=== PATIENT | male | born 1990 | race Two or more races ===

== ENCOUNTER → 2024-12-12 09:32 | Outpatient (REF) | payer OTHER, SELFPAY ==
--- NOTE | 2024-12-12 09:46 | CA_ITS ---
Transthoracic Echocardiogram Patient (Last, First, Middle): Pete Allison, Gender: Male Date of : 1990 Age: 34 Procedure Date: 12/12/2024 Procedure Type: Transthoracic Echocardiogram Location: OP Height: 175.26 cm Weight: 72.58 kg BSA: 1.88 m2 Heart Rate: bpm BP: 140 / 92 mmHg Singe Winder: VICKY Referring MD: Anne Wyatt MD Printing Supervisor: Michael Wagoner MD Symptoms: R55 SYNCOPE Study Quality: Adequate ECG Rhythm: Sinus Conclusions: - Overall normal study, however PFO suspected consider bubble contrast study if indicated Findings Left Ventricle Normal left ventricular size, thickness, and systolic function. The visually estimated ejection fraction is between 55-60%. Spectral Doppler is indicative of a normal filling pattern. Right Ventricle Normal right ventricular cavity size and systolic function. Atria Both atria are normal in size. small PFO suspected. Consider bubble contrast study if clinically indicated. Aortic Valve Normal aortic valve structure and function. There is no aortic valve stenosis. There is no aortic valve regurgitation. Mitral Valve Normal mitral valve structure and function. There is trace mitral valve regurgitation. There is no mitral valve stenosis. Pulmonic Valve The pulmonic valve is likely normal. Tricuspid Valve Normal tricuspid valve structure. There is trace tricuspid valve regurgitation. The right ventricular systolic pressure is normal. The right ventricular systolic pressure is 19 mmHg. Normal right atrial pressure. There is no evidence of pulmonary hypertension. Great Vessels All visible segments of the aorta are normal in size. The visualized portions of the pulmonary artery and branches are normal. Venous The inferior vena cava is normal in size and collapses greater than 50% with inspiration. Pericardium/Pleural There is no evidence of pericardial effusion. Prior Study Comparison No prior study available for comparison. Recommendations, Care & Conclusions Recommend contrast study to evaluate intracardiac shunting. Measurements 2D Linear Measurements IVSd: 0.89 0.6-0.9/0.6-1.0 cm LVIDd: 4.76 3.9-5.3/4.2-5.9 cm LVIDd Index: 2.53 2.4-3.2/2.2-3.1 cm/m2 LVIDs: 3.15 2.0-3.6 cm LVPWd: 0.72 0.7-1.1 cm LA Diam: 2.60 2.7-3.8/3.0-4.0 cm LAIDs Index: 1.38 1.5-2.3 cm/m2 LV Mass: 155.89 67-162/88-224 g LV Mass Index: 82.92 43-95/49-115 g/m2 LVOT Diam: 2.40 3.0+(-)1.3 cm 2D Systolic Function EF 4C: 57.10 >55% EF 2C: 55.00 >55% EF BiP: 55.50 >55% Mitral Valve MV Pk E: 0.56 MV PK A: 0.44 MV Decel Time: 264.00 E/A: 1.30 E'Lateral: 10.20 E'Medial: 9.03 E/E' Med: 6.20 E/E' Lat: 5.50 PHT: 77.00 MVA PHT: 2.86 Decel Bureau: 2.13 Aortic Valve AoV Pk Gatito: 1.01 AoV Mn Gatito: 0.69 AoV VTI: 0.23 AoV Pk Grad: 4.00 Aov Mn Grad: 2.00 JENNIFER Cont.VTI: 3.19 LVOT LVOT Pk Gatito: 0.84 LVOT Mn Gatito: 0.52 LVOT VTI: 0.17 LVOT Pk Grad: 3.00 LVOT Mn Grad: 1.00 LVOT Diam: 2.40 LVOT Area: 4.52 Diastolic Function MV Pk E: 0.56 MV Pk A: 0.44 E/A: 1.30 E'Medial: 9.03 E/E' Med: 6.20 E' Laterial: 10.20 E/E' Lat: 5.50 Right Ventricle TAPSE (mm): 20.30 TVS' Gatito: 10.10 Tricuspid Valve TR Pk Gatito: 2.02 TR Pk Grad: 16.00 RA Press: 3.00 RVSP: 19.00 Great Vessels Aorta Sinus of Valsalva: 3.26 2.0-3.5 cm Ao Asc: 3.20 2.1-3.4 cm Updated in Other Vendor System with Status of Final Michael Wagoner MD electronically signed on 12/13/2024 11:38:34 AM with status of Final
--- OUTSIDE RECORDS SUMMARY | 2024-12-12 09:53 | XMS_ITS | Clinical Summary ---
Author Organization [facility] Address [address] [place] [address] Care Team Providers Care Field Service Representative Name Role Phone Benjamin Montelongo MD Primary Care Pr ovider Allergies No known active allergies Medications SUMAtriptan (IMITREX) 25 mg tablet May repeat dose once after 2 hours, if needed. 4 Active topiramate (TOPAMAX) 25 mg tablet Take 1 Tablet by mouth at bedtime. 3 Active hydrOXYzine HCL (ATARAX) 25 mg tablet Take 1 Tablet by mouth at bedtime as needed for Anxiety. 3 Active meclizine (ANTIVERT) 25 mg tablet Take 1 Tablet by mouth every 8 hours as needed (dizziness/vert igo). Medication may cause drowsiness, do not drive/operate machinery while taking 3 Active Active Problems Problem Noted Date Diagnosed Date Enlarged tonsils 06/19/2023 Migraine with aura and witho ut status migrainosus, not intractable 06/19/2023 Syncopal episodes 06/19/2023 Hyperlipidemia 06/07/2023 Arachnoid cyst of posterior cranial fossa 2022 Overview (07/22/2024): Last Assessment & Plan: Mr. Allison describes some dizziness that is followed by a headache or migraine. This has been going on for many years but the worst episode happened about a month ago and resulted in a syncopal event where he fell and hit his head. He went to the emergency department and an MRI revealed a posterior fossa arachnoid cyst. I reviewed the films with Dr. Ta. I told the patient that this was an incidental finding and not related to the symptoms that he was describing. This could be vertigo and he may benefit from a referral to neurology. I will place the referral. Vertigo 04/14/2023 Anxiety 05/03/2018 Immunizations Name Administration Dates Next Due Influenza Quadravalent, MDCK , 0.5ml, preservative free (Flucelvax) 6mo and older 06/19/2023 Influenza Quadravalent, MDCK , 0.5ml, with preservative (Flucelvax) 6mo and older 05/03/2018 Tdap Tetanus diptheria acell ular pertussis (Boostrix; Adacel) 7yo and older 06/19/2023 Surgical History Surgery Date Site/Laterality Comments OTHER SURGICAL HISTORY PROCEDURE: DENIES PREVIOUS SURGERY Family History Medical History Relation Name Comments Depression Father No Known Problems Maternal Grandfather No Known Problems Maternal Grandmother No Known Problems Mother No Known Problems Paternal Grandfather No Known Problems Paternal Grandmother ADD / ADHD Sister 1 No Known Problems Sister 2 Breast cancer Neg Hx Colon cancer Neg Hx Prostate cancer Neg Hx Relation Name Status Comments Father Alive Maternal Grandfather Maternal Grandmother Mother Alive Paternal Grandfather Paternal Grandmother Alive Sister 1 Alive Sister 2 Alive Social History Tobacco Use Types Packs/Day Years Used Date Smoking Tobacco: Never Smokeless Tobacco: Never Alcohol Use Standard Drinks/Week Comments No 0 (1 standard drink = 0.6 oz pur e alcohol) Sex and Gender Information Value Date Recorded Sex Assigned at Male 05/29/2024 1:26 PM EST Legal Sex Male 8:28 AM EST Gender Identity Male 05/29/2024 1:26 PM EST Sexual Orientation Straight 05/29/2024 1: 26 PM EST Obstetrics History Last Filed Vital Signs Vital Sign Reading Time Taken Comments Blood Pressure 120/70 02/22/2024 4:03 PM EDT Pulse 88 02/22/2024 4:03 PM EDT Temperature - - Respiratory Rate - - Oxygen Saturation - - Inhaled Oxygen Concentration - - Weight 72.1 kg (159 lb) 02/22/2024 4:03 PM EDT Height 175.3 cm (5' 9 ) 02/22/2024 4:03 PM EDT Body Mass Index 23.48 02/22/2024 4:03 PM EDT Plan of Treatment Upcoming Encounters Date Type Department Care Team (Late st Contact Info) Description 04/23/2025 8:00 AM EDT Office Visit Adult Medicine [facility] [address] [place] [address] Benjamin Montelongo MD [address] [place] [id number] Health Maintenance Due Date Last Done Comments Hepatitis B Vaccines (1 of 3 - 19+ 3-dose series) 2009 Depression Screening 06/19/2022 HIV Screening 06/19/2022 Hepatitis C Screening 06/19/2022 Social Influencers of Health Screening 06/19/2022 COVID-19 Vaccine (2023-2 5 season) 2024 Influenza Vaccine (Season Ended) 2025 06/19/2023, 05/03/2018 Cholesterol Screening (Lipid Panel) 06/06/2028 06/06/2023 DTaP,Tdap,and Td Vaccines (2 - Td or Tdap) 06/19/2033 06/19/2023 HIB Vaccines Aged Out No longer eligi ble based on patient's age to complete this topic HPV Vaccines Aged Out No longer eligi ble based on patient's age to complete this topic Hepatitis A Vaccines Aged Out No long er eligible based on patient's age to complete this topic IPV Vaccines Aged Out No longer eligi ble based on patient's age to complete this topic MMR Vaccines Aged Out No longer eligi ble based on patient's age to complete this topic Meningococcal ACWY Vaccine Aged Out N o longer eligible based on patient's age to complete this topic Meningococcal B Vaccine Aged Out No l onger eligible based on patient's age to complete this topic Pneumococcal Vaccine: Pediatrics (0 to 5 Years) and At-Risk Patients (6 to 64 Years) Aged Out No longer eligible b ased on patient's age to complete this topic RSV Immunization Patients Under 20 months Aged Out No longer eligible b ased on patient's age to complete this topic Varicella Vaccines Aged Out No longer eligible based on patient's age to complete this topic Procedures Procedure Name Priority Date/Time Associated Diagnosis Comments LIPID PANEL Routine 06/06/2023 from Last 3 Months or Most Recently Relevant to Health Maintenance Results * (ABNORMAL) Lipid panel (06/06/2023) LDL/HDL Ratio 4 0 - 4 Triglycerides 128 0 - 150 mg/dL Cholesterol 233(A) 0 - 200 mg/dL HDL 55 >=40 mg/dL LDL Cholesterol 153(A) 0 - 100 mg/dL Blood Venous blood specimen / Unknown Historical Provider LAB BLOOD ORDERABLES Amber l Result from Last 3 Months or Most Recently Relevant to Health Maintenance Insurance [address] [address] [address] Care Teams Field Service Representative Relationship Specialty Start Date End Date Benjamin Montelongo MD PCP - General 07/25/22
== END ==
LOC: HO.CARD 09:32
PROVIDERS: Visit Provider Psychiatry & Neurology Neurology
DX: R55 Syncope and collapse (principal)
CPT/HCPCS: 93270; 93306

== ENCOUNTER → 2024-12-12 09:46 | Outpatient (BNV) | payer OTHER, SELFPAY | PROVIDERS: Visit Provider Internal Medicine Cardiovascular Disease | DX: Q21.12 Patent foramen ovale (principal) | CPT/HCPCS: 93303; 93320; 93325 ==

== ENCOUNTER 2025-05-12 15:39 | Outpatient (AMB) | payer OTHER, SELFPAY ==
--- NOTE | 2025-05-12 15:51 | A.OFFVIS_ITS ---
Intake Visit Reasons: follow up after 48hr Accompanied by: Spouse Allergies No Known Allergies Allergy (Unverified 05/12/25 15:52) Medication List - Last Reconciled 05/12/25 by Gregoria Downey CNP ondansetron 8 mg PO Q12H rizatriptan mg PO HPI Comments Details: He was doing okay. No episodes of dizziness or presyncopal feeling since last appointment in 12/2024. Migraines were better, less often and less severe. Rizatriptan as needed helped. He was also sometimes using OTC pain reliever that helped. Sleep was okay. Mood was okay. Work was okay. Previously, was getting frequent episodes of dizziness with diaphoresis, pallor and feels presyncopal. The next day, he will get brief tingling in his left hand followed by migraine with nausea and vomiting. It was happening about 3x/week. He had to lay down in quiet, dark room with ice cap on. Rizatriptan as needed helps. He stopped taking topiramate as medication made him too drowsy.?May be triggered by weather changes. He also thought it may be triggered by getting hair cut. 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 He was approved for 1 day of [facility]. Had few episodes of passing out, last episode in 10/2024,?was out on the floor for 5-10 minutes. He did not remember . One episode of tunnel vision and hemianopsia and took a pill and went to sleep and rested . It was better after 30 minutes. No migraine followed. Had a syncopal episode in May. Came out of the bathroom. Was back to normal in 5 minutes. No warning . Was confused as to what happened. He was diaphoretic. Had eaten. He has had presyncopal episodes . He has had vasovagal syncope in the past. This time there was no precipitant . He was terminated in a job in 2022 because of syncopal episode. His migraine frequency is 3/ week? lastint upto 1-2 days. He has had migraine headaches since childhood, usually 4 or 5 times a year, but since 2023 , they're occurring 2-3 times a week. They usually start with feeling some numbness and tingling in the left hand, waves of dizziness, vertigo, presyncope, followed by some facial twitching and then visual distortion with spots, sparkles, and waves in his vision till the vision goes completely dark, and he gets cold and sweaty. The symptoms last 10-15 min. and are followed by a severe pressure-type headache with nausea, vomiting, photophobia and sonophobia, so he has to go to bed and cannot function. The severe headache lasts about 6 hours. He has not been treated for this. He ?was prescribed a small dose of sumatriptan and topiramate. He has a family history of migraine in his mother and maternal grandmother. No triggers have been identified. [facility] Medical History (Updated 05/12/25 @ 15:54 by Gregoria Downey CNP) Migraine without aura Review of Systems Const Denies chills, Denies daytime sleepiness, Denies difficulty sleeping, Denies fatigue, Denies fever(s), Denies frequent falls, Reports headache(s), Denies increased appetite, Denies poor appetite, Denies snoring, Denies weakness, Denies weight gain and Denies weight loss Eyes Denies loss of vision ENT Denies vertigo, Reports dizziness, Reports headache(s) and Denies neck pain Card Denies chest pain at rest, Denies chest pain with activity, Denies syncope, Denies leg edema, Denies palpitations, Denies dyspnea and Denies dyspnea on exertion Resp Denies cough, Denies dyspnea, Denies dyspnea on exertion and Denies snoring GI Denies abdominal pain, Denies constipation, Denies heartburn, Denies diarrhea and Denies nausea Denies urinary frequency, Denies urinary incontinence and Denies urinary urgency Musc Denies abnormal gait, Denies back pain, Denies myalgias, Denies arthralgias, Denies neck pain, Reports numbness and Reports tingling Neuro Denies abnormal gait, Denies vertigo, Reports dizziness, Denies syncope, Denies frequent falls, Reports headache(s), Denies lack of coordination, Denies loss of vision, Denies memory loss, Reports numbness, Denies Other visual disturbances, Denies restless legs, Denies seizure-like activity, Reports tingling, Denies paresthesias, Denies tremor(s) and Denies weakness Psych Denies anxiety, Denies depression, Denies auditory hallucinations, Denies memory loss and Denies visual hallucinations Endo Denies fatigue and Denies palpitations Physical Exam Const Other: General Appearance:? normal, in no acute distress. Heart:? S1, S2 normal, no murmurs. Lungs:? clear anteriorly and posteriorly. Musculoskeletal:? normal. Extremities:? no edema. Psych:? alert, oriented, cognitive function intact, cooperative with exam. Neuro Other: Abnormal Neurological Findings:?none.? Mental Status: alert and oriented X 3. Normal attention, orientation, memory, and affect. Cranial Nerves: Pupils are equal, round, and reactive to light. External ocular muscles are intact. Visual monet are full, no ptosis. Face is symmetrical, no facial weakness or droop. Facial sensations are normal. Tongue protrudes in midline. Palate elevates symmetrically. Shoulder shrugging is normal Motor Examination: Normal muscle tone, bulk and strength. No atrophy or fasciculations. No drift of the extended upper extremities. DTR 2+. Plantars are flexor. Sensory Exam: Normal light touch, temperature, pinprick, vibration, and joint- position sensations. Rhomberg sign is absent. Coordination: No ataxia. No titubation. Gait Exam: Within normal limits. Cerebellar Signs: [id number] is okay. Extrapyramidal System: No tremor, rigidity with normal facial expressions. No bradykinesia. No bradyphrenia. Normal arm swing and posture. No propulsion or retropulsion. Speech: Normal. Results Reviewed Results Reviewed: 07/12/24 EEG- WN MRI brain at [facility]. 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 Baseline was normal sinus rhythm with no pauses 2. Rare PACs and PVCs noted 3. Patient reported 1 event correlating with sinus rhythm 48hr EEG at [facility] 01/2025: WNL Assessment & Plan Assessment & Plan (1) Migraine with aura: Code(s): G43.109 - Migraine with aura, not intractable, without status migrainosus Category: Medical Qualifiers: Intractability: not intractable Status migrainosus presence: without status migrainosus Qualified Code(s): G43.109 - Migraine with aura, not intractable, without status migrainosus Plan: Continue rizatriptan 10mg 1 tablet as needed for migraine. Continue ondansetron 8mg 1 tablet as needed for nausea/vomiting. May continue OTC pain reliever as needed for headache/migraine. He was advised not to take OTC analgesic and/or rizatriptan more than 2-3x/week. (2) Syncope: Code(s): R55 - Syncope and collapse Category: Medical Qualifiers: Syncope type: unspecified Qualified Code(s): R55 - Syncope and collapse Plan: Cardiac event monitor and 48hr EEG results reviewed. Symptoms had not been happening for last few months. Follow up in 6 months or sooner as needed. Plan Meds tried: topiramate (drowsy) Medications: Changed From ondansetron 8 mg PO Q12H To ondansetron 8 mg PO Q12H 10 tabs 5RF 30 days Coding Level of Care Code Est Pt Level 4 (26368) Diagnoses Migraine with aura and without status migrainosus, not intractable G43.109 Intractability: not intractable Status migrainosus presence: without status migrainosus Syncope, unspecified syncope type R55 Syncope type: unspecified
--- OUTSIDE RECORDS SUMMARY | 2025-05-12 18:43 | XMS_ITS | Clinical Summary ---
Author Organization [facility] [address] [place] [address] [place] [phone] Phone Care Team Providers Care Job Boss Name Role Phone Benjamin Montelongo MD Primary [...] the referral. Vertigo 04/14/2023 Anxiety 05/03/2018 Immunizations Immunization Administration Dates Next Due Influenza Quadravalent, MDCK [...] 02/22/2024 4:03 PM EDT Plan of Treatment Health Maintenance Due Date Last Done Comments Hepatitis B Vaccines (1 of 3 - 19+ 3-dose series) 2009 HPV Vaccines (1 - 3-dose SCD M series) 2017 HIV Screening 06/19/2022 Hepatitis C Screening 06/19/2022 Social Influencers of Health Screening 06/19/2022 Depression Screening 07/17/2024 COVID-19 Vaccine (1 - 2023-2 5 season) 2025 Influenza Vaccine (#1) 2025 , 05/03/2018 Cholesterol Screening (Lipid Panel) 06/06/2028 06/06/2023 DTaP,Tdap,and Td Vaccines (2 - Td or Tdap) 06/19/2033 06/19/2023 RSV Immunization Adult Patients (1 - 1-dose 75+ series) 2065 HIB Vaccines Aged Out No longer eligi [...] 5 Years) and At-Risk Patients (6 to 49 Years) Aged Out No longer eligible b [...] mg/dL Blood Venous blood specimen / Unknown us Historical Provider LAB BLOOD ORDERABLES Amber l Result from Last 3 Months or Most Recently Relevant to Health Maintenance Insurance [facility] Care Teams Job Boss Relationship Specialty Start Date End Date Benjamin Montelongo MD PCP - General 07/25/22
== END 2025-05-12 16:08 | disposition home or self-care (01) ==
LOC: HO.HSM 15:40
PROVIDERS: PCP Internal Medicine; Visit Provider Registered Nurse
DX: G43.109 Migraine with aura, not intractable, without status migrainosus (principal); R55 Syncope and collapse
CPT/HCPCS: 99214